=== PATIENT | female | born 1945 | race Caucasian/White ===

== ENCOUNTER 2017-12-29 08:17 | Outpatient (CLI) | payer MEDICARE ==
--- NOTE | 2017-12-29 10:42 | MRI ---
MRI OF THE RIGHT SHOUDLER WITHOUT CONTRAST: INDICATION: History of a fall with right shoulder pain. FINDINGS: There is a full-thickness supraspinatus. There is intratendinous delamination extending from the tea r into the anterior infraspinatus extending to the level of the musculotendinous junction. There is intrasubstance delaminating tear involving the cranial subscapularis best seen on image 15 of series 3 involving the mid 1/3 of the tendon. There is a partial-thickness split tear of the proximal long head of the biceps tendon. There is a type I degenerative tear involving the superior glenoid labrum . There is mild AC joint osteoarthrosis. No muscular atrophy is evident. There is mild glenohumera l osteoarthrosis. IMPRESSION: 1. Large full-thickness tear of the supraspinatus with intratendinous extension into the anterior in fraspinatus extending medially into the musculotendinous junction of the infraspinatus. 2. Partial thickness intratendinous tear involving the cranial subscapularis. 3. Partial-thickness longitudinal split tear involving the long head of the biceps tendon. 4. Degenerative fraying of the superior glenoid labrum. 5. Mild glenohumeral and mild acromioclavicular joint osteoarthrosis. POS: [facility]
== END 2017-12-29 08:18 | disposition home or self-care (01) ==
LOC: TBSIIMAG 08:17
PROVIDERS: ATTEND Orthopaedic Surgery
DX: M25.511 Pain in right shoulder (principal); M75.101 Unspecified rotator cuff tear or rupture of right shoulder, not specified as traumatic; M19.011 Primary osteoarthritis, right shoulder

== ENCOUNTER 2018-02-17 11:18 | Outpatient (CLI) | payer MEDICARE ==
[2018-02-17 13:16] LABS: Bilirubin Negative (Negative); Blood, Urine Negative (Negative); Clarity CLEAR (Clear); Glucose, Urine (Dipstick) Negative (Negative); Leukocyte Negative (Negative); Nitrite Negative (Negative); Protein, Urine (Dipstick) Negative (Neg-Trace); Specific Gravity, Urine 1.006 (1.002-1.036); Urobilinogen 0.2 mg/dL (0.2-1.0)
[2018-02-17 13:18] LABS: Bacteria/HPF None Seen HPF (None Seen); Hyaline Casts/LPF 0-3 HYALINE CAST LPF (0-3 Hyaline); RBC/HPF 0-3 HPF (0-3); Squamous Epithelial None Seen HPF (0-3); WBC/HPF None Seen HPF (0-3)
--- NOTE | 2018-02-17 14:23 | RAD ---
PA AND LATERAL CHEST: History: Pre-operative evaluation. FINDINGS: Comparison made with exam of 11-02-13. The heart size is normal. The aorta is tortuous. The lungs are expanded without focal areas of consol idation, pneumothoraces, or pleural effusions. There are post op changes in the lower cervical spine. Degenerative changes are present in the thoracic spine. IMPRESSION: No radiographic evidence of acute cardiopulmonary process. POS: [facility]
--- NOTE | 2018-02-17 20:28 | EKG ---
Test Reason : Blood Pressure : / mmHG Vent. Rate : 072 BPM Atrial Rate : 072 BPM P-R Int : 156 ms QRS Dur : 098 ms QT Int : 400 ms P-R-T Axes : 048 -13 010 degrees QTc Int : 438 ms Normal sinus rhythm Normal ECG When compared with ECG of 01-MAY-2017 14:17, No significant change was found Confirmed by AURELIO GU (2) on 02/17/2018 8:27:56 PM Referred By: AMY Confirmed By:AURELIO GU
== END 2018-02-17 11:19 | disposition home or self-care (01) ==
LOC: LABBT 11:18
PROVIDERS: ATTEND Orthopaedic Surgery
DX: Z01.818 Encounter for other preprocedural examination (principal); M75.101 Unspecified rotator cuff tear or rupture of right shoulder, not specified as traumatic; M75.21 Bicipital tendinitis, right shoulder
CPT/HCPCS: 71046; 81001; 93005; 93010

== ENCOUNTER 2018-02-22 13:11 | Outpatient (CLI) | payer MEDICARE ==
[2018-02-22 13:31] LABS: Hemoglobin 15.2 g/dL (12.0-16.0); Mean Corpuscular Hemoglobin 32.3 pg (27.0-31.0); Mean Corpuscular Volume 94.8 fl (81.0-99.0); Mean Platelet Volume 6.4 fL (7.4-10.4); Platelet Count 324 thou/uL (130-400); RBC Distribution Width 11.9 % (11.5-14.5); White Blood Cell (WBC) Count 4.4 thou/uL (4.8-10.8)
[2018-02-22 13:39] LABS: INR-International Normal Ratio 0.9; PTT 28.3 SEC (22.9-36.1); Prothrombin Time 12.5 SEC (12.0-14.7)
[2018-02-22 14:01] LABS: Anion Gap 11 mmol/L (10-20); BUN (Urea Nitrogen) 21 mg/dL (9.8-20.1); Calc. Creatinine Clearance 0 mL/min (70-130); Calcium 9.5 mg/dL (7.8-10.44); Carbon Dioxide 28 mmol/L (23-31); Chloride 101 mmol/L (98-107); Estimated GFR-MDRD 72; Glucose 77 mg/dL (83-110); Potassium 4.4 mmol/L (3.5-5.1); Sodium 136 mmol/L (136-145)
== END 2018-02-22 13:12 | disposition home or self-care (01) ==
LOC: LABBT 13:11
PROVIDERS: ATTEND Orthopaedic Surgery
DX: Z01.818 Encounter for other preprocedural examination (principal); M75.101 Unspecified rotator cuff tear or rupture of right shoulder, not specified as traumatic; M75.21 Bicipital tendinitis, right shoulder
CPT/HCPCS: 80048; 85027; 85610; 85730; 86850; 86900; 86901

== ENCOUNTER 2018-02-25 06:43 | Day surgery (SDC) | payer MEDICARE ==
[2018-02-17 11:34] VITALS: BMI 25.2
[2018-02-25] MEDS ORDERED: CEFAZOLIN/Water 2 GM/20 ML SYRINGE ONE (07:33)
[2018-02-25] MEDS ORDERED: Midazolam HCl 2 mg/2 ml Vial ONE (08:08)
[2018-02-25] MEDS ORDERED: Fentanyl 100 MCG/2 ML VIAL ONE (08:08)
[2018-02-25] MEDS ORDERED: Fentanyl 100 MCG/2 ML VIAL IV PRN (08:48)
[2018-02-25] MEDS ORDERED: traMADol HCl 50 MG TAB PO PRN ×2 (08:48)
[2018-02-25] MEDS ORDERED: Promethazine HCl 25 MG/ML VIAL IM PRN (08:48)
[2018-02-25] MEDS ORDERED: Ropivacaine HCl/PF 1,100 MG in Premix Bag 1 BAG NERVE BLCK SCH (08:48)
[2018-02-25] MEDS ORDERED: Ondansetron HCl/PF 4 MG/2 ML Vial IVP PRN (08:48)
[2018-02-25] MEDS ORDERED: HYDROcodone/Acetaminophen 5/325 mg Tablet PO PRN ×2 (08:48)
[2018-02-25] MEDS ORDERED: Zolpidem Tartrate 5 MG TAB PO PRN (08:48)
[2018-02-25] MEDS ORDERED: Bupivacaine/Epinephrine 0.25% 30 ML VIAL ONE (09:13)
--- NOTE | 2018-02-25 11:29 | OP ---
DATE OF PROCEDURE: 02/25/2018 PREOPERATIVE DIAGNOSES: 1. Dislocation shoulder. 2. Complete tear rotator cuff. 3. Biceps tendinosis. POSTOPERATIVE DIAGNOSES: 1. Full thickness rotator cuff tear. 2. Biceps partial tear 50%. 3. Grade III-IV changes glenoid and humerus. 4. Dislocation shoulder. 5. Impingement. PROCEDURE PERFORMED: 1. Right shoulder rotator cuff repair, double row equivalent. 2. Biceps tenotomy/limited debridement. 3. Subacromial decompression. STAFF: Hernesto Perez M.D. RATE CLERK PASSENGER: None ANESTHESIA: The patient received a general intubation interscalene block. ESTIMATED BLOOD LOSS: 40 mL. TOURNIQUET TIME: None. IMPLANTS: A 5.5 BioComposite corkscrew x2 and a 5.5 SwiveLock x2 for transosseous double row equival ent. ANTIBIOTICS: Ancef 2 grams. COMPLICATIONS: None. HISTORY OF PRESENT ILLNESS: Ms. Morales is a pleasant 72-year-old female who presented to me with ri ght shoulder pain. She dislocated her shoulder and was followed by Neurosurgery, who did a fusion fo r some spinal stenosis by Dr. Kelelr. The patient continued to have pain and had an MRI showing a fu ll thickness rotator cuff tear. I discussed with the patient the risks and benefits of arthroscopic rotator cuff repair, possible biceps tenotomy versus tenodesis, decompression and indicated procedure s. The patient understood the risks and benefits of the procedure to include pain, scar, bleeding, i nfection, damage to vital structures, decreased range of motion or strength, failure of the procedure , continued pain despite surgical intervention, loss of life or limb. She understood these risks and benefits and elected to proceed. PROCEDURE NOTE: Timeout was performed designating the patient's right upper extremity as the operati ve site based on site, consents and marking. After completion of timeout the patient's right upper e xtremity was prepped and draped in sterile fashion. Posterior working portal and anterior working po rtal placed. I visualized intraarticular within the joint. I saw a large grade III defect on the gl enoid and humerus with some possible areas of 4. I saw the cuff tear within the joint. The patient had approximately 50% tear of the biceps. I completed the biceps with my scissors to perform a tenot ramirez, shaved and cleaned the bursa and any of the free cartilage flaps. There was flap of cartilage n oted in the subacromial space. We debrided down to bone off the footprint intraarticularly then afte r completion of this, being happy with my debridement final pictures, I moved subacromially, placed a lateral working portal, repositioned my ____ anterior and lateral, debrided off the bursa to expose the cuff, I burred down, shaved down a small acromion to decompress the shoulder and subacromial deco mpression to decompress and burred down the bone. I exposed my footprint for placing my anchors, I p laced two 5.5.corkscrews just off the medial cartilage, passed 8 stitches, 8 limbs through and sewed 4 horizontal mattress sutures through transosseous equivalent 5.5 SwiveLocks laterally. I felt I had good overall alignment compression of the bone. I then completed my procedure, cut the sutures, was hed and closed the 4 holes that I had been made, the fourth hole was to help with placing my anchors from the anterior superior lateral portal just off the acromion. We closed them all. I placed the p atient in an abduction sling. The patient will be elbow, wrist, and hand motion. I will follow up the patient up in 2 weeks, begin elbow, wrist and hand motion. At that time we will begin working on functional range of motion.
[2018-02-25] MEDS ORDERED: Ropivacaine 0.2% HCl/PF (40 MG/20 ML VIAL) ONE (12:51)
[2018-02-25] MEDS ORDERED: Ropivacaine 0.5% HCl/PF (150 MG/30 ML VIAL) ONE (12:51)
[2018-02-25] MEDS ORDERED: Glycopyrrolate 0.2 MG/ML 5 ML SYRINGE ONE (13:06)
[2018-02-25] MEDS ORDERED: PHENYLEPHRINE-NS 100 MCG/ML 10 ML SYRINGE ONE (13:06)
[2018-02-25] MEDS ORDERED: PROPOFOL 200 MG/20 ML VIAL ONE (13:06)
== END 2018-02-25 13:11 | disposition home or self-care (01) ==
LOC: SDC 06:43
PROVIDERS: ATTEND Orthopaedic Surgery
PROC: 0LM14ZZ Reattachment of Right Shoulder Tendon, Percutaneous Endoscopic Approach (ICD-10-PCS; principal; 2018-02-25)
PROC: 0RHJ44Z Insertion of Internal Fixation Device into Right Shoulder Joint, Percutaneous Endoscopic Approach (ICD-10-PCS; 2018-02-25)
PROC: 0RNJ4ZZ Release Right Shoulder Joint, Percutaneous Endoscopic Approach (ICD-10-PCS; 2018-02-25)
DX: S46.011A Strain of muscle(s) and tendon(s) of the rotator cuff of right shoulder, initial encounter (principal); S43.004A Unspecified dislocation of right shoulder joint, initial encounter; S46.111A Strain of muscle, fascia and tendon of long head of biceps, right arm, initial encounter; M75.41 Impingement syndrome of right shoulder; I10 Essential (primary) hypertension; M81.0 Age-related osteoporosis without current pathological fracture; M79.7 Fibromyalgia; M75.21 Bicipital tendinitis, right shoulder; F41.9 Anxiety disorder, unspecified; F32.9 Major depressive disorder, single episode, unspecified; M19.90 Unspecified osteoarthritis, unspecified site; K21.9 Gastro-esophageal reflux disease without esophagitis; E03.9 Hypothyroidism, unspecified; E78.5 Hyperlipidemia, unspecified; G43.909 Migraine, unspecified, not intractable, without status migrainosus; G25.0 Essential tremor; Z79.899 Other long term (current) drug therapy; Z98.1 Arthrodesis status; Z96.651 Presence of right artificial knee joint; W18.41XA Slipping, tripping and stumbling without falling due to stepping on object, initial encounter
CPT/HCPCS: 29826; 29827; C1713 ×2; J2250; J2795; J3010

== ENCOUNTER 2018-05-06 13:41 | Emergency (ER) | payer MEDICARE ==
[2018-05-06] MEDS ORDERED: HYDROcodone/Acetaminophen 5/325 mg Tablet ONE (14:15)
--- NOTE | 2018-05-06 14:56 | CT ---
CT BRAIN: Date: 05-06-18 Provided Clinical History: Trauma. FINDINGS: The ventricular system appears normal in size and morphology. There is no evidence for intracranial h emorrhage or mass effect. The extracranial soft tissues and osseous structures demonstrate an unremar kable CT appearance. IMPRESSION: No evidence for intracranial hemorrhage or mass effect. POS: [facility]
--- NOTE | 2018-05-06 14:58 | CT ---
CT FACIAL BONES: Date: 05-06-18 Provided Clinical History: Facial pain status post injury. FINDINGS: There is a nondisplaced fracture involving the nasal bone left of midline. No additional fracture is evident. The globes and other orbital contents appear normal. IMPRESSION: Nondisplaced fracture involving the left aspect of the nasal bone. POS: [facility]
--- NOTE | 2018-05-06 14:59 | CT ---
CT CERVICAL SPINE: Date: 05-06-18 Provided Clinical History: Trauma. FINDINGS: There is no evidence for fracture or traumatic subluxation. Cervical degenerative and post-operative changes are seen. No prevertebral soft tissue swelling apparent. The visualized lung apices appear cl ear. IMPRESSION: No evidence for fracture or traumatic subluxation. POS: [facility]
== END 2018-05-06 15:07 | disposition home or self-care (01) ==
LOC: SCSER 13:41
DX: S02.2XXA Fracture of nasal bones, initial encounter for closed fracture (principal); Z79.899 Other long term (current) drug therapy; W01.0XXA Fall on same level from slipping, tripping and stumbling without subsequent striking against object, initial encounter
CPT/HCPCS: 70450; 70486; 72125

== ENCOUNTER 2018-07-12 13:36 | Outpatient (CLI) | payer MEDICARE ==
--- NOTE | 2018-07-12 16:56 | BD ---
DEXA BONE MINERAL DENSITOMETRY STUDY: 07/12/2018 HISTORY: Postmenopausal. FINDINGS: The patient had bilateral hip and left wrist surgery and, as a result, a bone mineral densitometry st udy was performed of the lumbar spine and the right wrist. LUMBAR SPINE BMD (g/cm2) T-SCORE Z-SCORE L1 0.921 -0.6 1.4 L2 0.964 -0.6 1.7 L3 1.016 -0.6 1.7 L4 1.213 1.4 3.8 L1-L4 1.044 0 2.2 DISTAL RIGHT FOREARM/WRIST ONE-THIRD 0.532 -2.7 -0.4 MID 0.514 -1.7 0.6 UD 0.373 -1.2 0.5 TOTAL RIGHT FOREARM 0.477 -1.9 0.3 IMPRESSION: 1. Normal bone mineralization of the lumbar spine. 2. Moderate osteopenia of the left wrist. This patient meets the WHO criteria for osteoporosis. POS: [facility]
== END 2018-07-12 13:37 | disposition home or self-care (01) ==
LOC: BICMAMMO 13:36
PROVIDERS: ATTEND Internal Medicine Rheumatology
DX: M81.0 Age-related osteoporosis without current pathological fracture (principal); M85.832 Other specified disorders of bone density and structure, left forearm
CPT/HCPCS: 77080

== ENCOUNTER 2018-08-11 08:57 | Outpatient (CLI) | payer MEDICARE ==
--- NOTE | 2018-08-11 12:32 | MRI ---
LUMBAR SPINE MRI WITHOUT IV CONTRAST: HISTORY: A 72-year-old female with a history of thoracic spine pain and radiculopathy. Chronic upper and lowe r back pain for years. FINDINGS: There are generalized disk desiccation changes and ligament and facet hypertrophic changes. The conu s medullaris region is unremarkable and somewhat low-lying, terminating at the inferior L2 level. Th ere is a left renal T2 hyperintense/T1 hypointense, circumscribed focus, 2.8 cm, statistically a maurilio l cyst. Mild irregular vertical height loss of the T12 vertebral body, less than 50%, without signif icant acute edema, evidence for an old mild compression. No significant retropulsion. L1-L2: Very mild lateral recess narrowing without significant central canal or foraminal stenosis. L2-L3: Slight dorsolateral thinning of the lateral recesses from ligament and facet hypertrophic ladi nges at L2-L3, without central canal or foraminal stenosis, L3-L4: Mild lateral recess stenosis and mild bilateral foraminal stenosis. L4-L5: Moderate central canal and lateral recess stenosis at L4-L5 with moderate bilateral foraminal stenosis. L5-S1: Diffuse disk bulge at L5-S1 with central annular fissure without significant thecal sac compr ession. Moderate to severe bilateral foraminal stenosis. IMPRESSION: Multilevel variable severity canal, lateral recess, and foraminal stenosis. Other findings as above. POS: [facility]
--- NOTE | 2018-08-11 12:36 | RAD ---
LUMBAR SPINE FOUR VIEWS: HISTORY: A 72-year-old female with a history of low back pain, M54.5. Chronic upper and lower back pain for y ears, getting worse. Bilateral leg numbness. TECHNIQUE: Exam includes flexion and extension standing lateral views. FINDINGS: Disk osteophytosis changes are noted with narrowing at L4-L5 and at L5-S1. Mild vertical height loss of T11 and T12, which appears old. No evidence for abnormal translation between flexion and extensi on. IMPRESSION: Extensive spondylosis with narrowing at L4-L5 and at L5-S1, in particular, with some vertical height loss of T11 and T12, without evidence for abnormal translation between flexion and extension. POS: [facility]
--- NOTE | 2018-08-11 12:41 | MRI ---
MRI THORACIC SPINE NONCONTRAST: INDICATIONS: Thoracic spine pain. Thoracic radiculopathy. FINDINGS: There is thoracic kyphosis. Multilevel chronic endplate deformities with associated height loss pres ent, related to endplate degenerative change and Schmorl's node formation. There is no acute marrow edema, acute compression fracture, or significant subluxation. The thoracic spinal cord reveals no i ntrinsic expansile process or definitive evidence for significant cord abnormality. Incidental note of anterior metallic susceptibility of the low cervical spine, related to ACDF, at C6-C7. At the T2-T3 level, there is a broad-based disk osteophyte effacing the ventral aspect of the upper t horacic spinal cord, with mild central canal stenosis. No high grade foraminal compromise. The T3-T4 level reveals disk osteophyte complex with effacement of the ventral thecal sac, although n o significant cord deformity. There is mild narrowing of the right neural foramen. No high grade le ft foraminal stenosis. Otherwise, mild multilevel disk osteophyte formation throughout the thoracic spine with slight efface ment of the ventral thecal sac, although no high grade central canal stenosis or cord deformity. No significant paraspinous soft tissue edema is present. Partially imaged cyst formation is seen at the left kidney. IMPRESSION: 1. Multilevel degenerative change of the thoracic spine. There is a moderate degree of thoracic kyp hosis. 2. Incidental note of anterior cervical diskectomy and fusion change at the low cervical spine. 3. Incidental left renal cyst. Recommend follow-up renal ultrasound, as this finding is incompletel y visualized. POS: [facility]
== END 2018-08-11 08:58 | disposition home or self-care (01) ==
LOC: SCSMRI 08:57
PROVIDERS: ATTEND Surgery
DX: M47.26 Other spondylosis with radiculopathy, lumbar region (principal); M54.5 Low back pain; M54.6 Pain in thoracic spine; G45.0 Vertebro-basilar artery syndrome; M47.817 Spondylosis without myelopathy or radiculopathy, lumbosacral region; M48.07 Spinal stenosis, lumbosacral region; M48.061 Spinal stenosis, lumbar region without neurogenic claudication; M40.204 Unspecified kyphosis, thoracic region; M47.894 Other spondylosis, thoracic region; M99.84 Other biomechanical lesions of sacral region; M99.83 Other biomechanical lesions of lumbar region; M51.9 Unspecified thoracic, thoracolumbar and lumbosacral intervertebral disc disorder
CPT/HCPCS: 72110; 72146; 72148

== ENCOUNTER 2018-12-05 22:22 | Emergency (ER) | payer MEDICARE ==
[2018-12-05] MEDS ORDERED: Lidocaine 1% w/Epinephrine 1:100K 20 ML VIAL ONE (22:43)
[2018-12-05] MEDS ORDERED: Ondansetron PF 4 MG/2 ML Vial ONE (22:55)
[2018-12-05] MEDS ORDERED: Morphine 4 MG/ML VIAL ONE (22:55)
--- NOTE | 2018-12-05 23:24 | RAD ---
LEFT HIP TWO VIEWS: HISTORY: Status post fall. TECHNIQUE: AP and frogleg views of the left hip obtained. FINDINGS: AP and lateral views of the left hip demonstrate a proximal left femoral gamma nail and lag screw in place. The intertrochanteric fracture has healed. No evidence of recurrent fracture is seen. IMPRESSION: Old healed intertrochanteric fracture with no evidence of acute abnormality seen. POS: [facility]
--- NOTE | 2018-12-05 23:26 | RAD ---
LEFT HAND THREE VIEWS: HISTORY: Fall with left thumb pain. TECHNIQUE: AP, lateral, and oblique views of the left hand obtained. FINDINGS: Images demonstrate osteoarthritic changes seen in the first carpometacarpal joint. There is chronic hyperextension deformity at the first metacarpophalangeal joint. No evidence of acute fractures or b darek lesions seen. IMPRESSION: Osteoarthritis, first carpometacarpal joint. POS: [facility]
--- NOTE | 2018-12-05 23:27 | CT ---
CT BRAIN: HISTORY: Fall. Hit head on door, with head trauma. TECHNIQUE: Noncontrast enhanced CT images of the brain obtained. FINDINGS: The brain is unremarkable. No evidence of intracranial masses, hemorrhages, strokes, or contusions s een. The ventricles are of normal size. The calvarium is unremarkable. IMPRESSION: Normal CT brain. POS: [facility]
[2018-12-05] MEDS ORDERED: Bacitracin Zinc 1 Packet ONE (23:31)
--- NOTE | 2018-12-05 23:45 | CT ---
CT CERVICAL SPINE: HISTORY: Fall. Neck pain. TECHNIQUE: Axial images are obtained with coronal and sagittal reconstructions. FINDINGS: The patient has had a previous ACDF with fusion of the C6-C7 levels. The upper aspect of the C6 port ion of the plate is slightly anteriorly displaced, appearing to be somewhat from the anteri or portion of the vertebral body by approximately 2 mm. There are additional areas of spondylosis at C4-C5 and at C5-C6. There is apparent fusion of the left C4-C5 facet joint. No evidence of acute cervical spine fracture is seen. IMPRESSION: Anterior cervical diskectomy and fusion changes with changes of spondylosis. No evidence of acute ce rvical spine fracture is seen. POS: [facility]
[2018-12-06] MEDS ORDERED: Acetaminophen 325 MG TAB ONE (00:10)
== END 2018-12-06 00:19 | disposition home or self-care (01) ==
LOC: SCSER 22:22
DX: S01.81XA Laceration without foreign body of other part of head, initial encounter (principal); S70.02XA Contusion of left hip, initial encounter; M54.2 Cervicalgia; F41.9 Anxiety disorder, unspecified; K21.9 Gastro-esophageal reflux disease without esophagitis; F32.9 Major depressive disorder, single episode, unspecified; E78.00 Pure hypercholesterolemia, unspecified; M19.90 Unspecified osteoarthritis, unspecified site; I10 Essential (primary) hypertension; Z79.899 Other long term (current) drug therapy; Z79.891 Long term (current) use of opiate analgesic; W19.XXXA Unspecified fall, initial encounter
CPT/HCPCS: 12011; 70450; 72125; 96361; 96374; 96375; J2001; J2270; J2405

== ENCOUNTER 2019-07-06 10:26 | Outpatient (CLI) | payer MEDICARE ==
[~2019-07-06 10:26] MED LIST: Iopamidol 370 76% 100 ML VIAL ONE
--- NOTE | 2019-07-06 15:11 | CT ---
CT NECK WITH CONTRAST: Date: 07/06/19 Axial tomograms obtained with multiplanar reconstruction. INDICATION: Palpable mass right neck below ear. Skin marker placed at site of concern. FINDINGS: The right parotid gland is slightly larger than the left and exhibits increased density. The left par otid gland shows fatty replacement/atrophy. The marker at the neck is along the inferior tip of the r ight parotid gland. No parotid mass or adenopathy seen. Submandibular glands are normal and symmetric. Thyroid is unremarkable. Nasopharynx unremarkable. Oropharynx unremarkable. Base of tongue is obscured due to spray artifact from dental appliance. Johanna ohyoid and mylohyoid complex is unremarkable. The right vallecula is mildly effaced in the hypopharynx region. Hypopharynx otherwise unremarkable. Piriform sinuses are slightly asymmetric, but are aerated. Larynx unremarkable. Parapharyngeal space and retropharyngeal space unremarkable. Cervical lymph nodes are within normal range with no evidence of adenopathy. Paranasal sinuses and mastoids are clear. Postop changes with anterior fusion from plate and screws at C6-7. Posterior spondylosis at C5-6 and C6-7 appears prominent and appears to impinge on the cervical cord. Carotid space shows atherosclerotic calcifications in both bulbs without evidence of significant mcknight tid stenosis. IMPRESSION: Parotid glands are asymmetric. The right parotid gland appears edematous when compared to the left an d does correspond to the area of palpable abnormality on the right. Parotitis should be excluded. Con mortgage specialist ENT consultation. POS: [facility]
== END 2019-07-06 10:27 | disposition home or self-care (01) ==
LOC: SCSCT 10:26
PROVIDERS: ATTEND Internal Medicine
DX: R22.1 Localized swelling, mass and lump, neck (principal)
CPT/HCPCS: 70491; Q9967

== ENCOUNTER 2020-02-09 13:23 | Outpatient (CLI) | payer MEDICARE ==
--- NOTE | 2020-02-09 15:34 | RAD ---
LUMBAR SPINE: 02/09/20 Four views. HISTORY: Back pain. Lumbar vertebrae maintain height and alignment. There are wedge deformities involving the lower thora cic vertebrae with prominent degenerative spurring. There is disc space loss at L4-5 and L5-S1. Promi nent facet hypertrophy at these levels. Alignment is maintained with no evidence of listhesis. No sig nificant change with flexion or extension. IMPRESSION: Degenerative changes in the lumbar spine most pronounced at L4-5 and L5-S1. Findings appear stable when compared to lumbar films of 08/11/18. POS: [facility]
--- NOTE | 2020-02-09 16:01 | RAD ---
CERVICAL SPINE: HISTORY: History of cervical radiculopathy. Arm pain. FINDINGS: Cervical vertebrae maintain height. There are anterior fusion procedure changes with anterior plate and screws transfixing C6-7. Interbody implant with fusion at this level. Disk narrowing and degene rative changes at C5-6 with mild posterior listhesis at C5-6. The other vertebral bodies maintain no rmal height and alignment. The posterior listhesis at C5-6 appears to reduce with flexion. IMPRESSION: Postoperative and degenerative changes of the cervical spine as described. POS: [facility]
--- NOTE | 2020-02-09 16:24 | MRI ---
MRI LUMBAR SPINE NONCONTRAST: DATE: 02/09/2020 HISTORY: 74-year-old female with low back pain COMPARISON: 08/11/2018 FINDINGS: r approximately 3 cm left renal cyst again visualized. 5 lumbar-type vertebrae. Mild loss of height of T12 vertebral body, chronic, with mild depression of superior endplate associated with prominent Schmorl's node. No bone marrow edema. The rest of the vertebral body heights are maintained. 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 T12-L1:Mild disc bulge. No central stenosis or high-grade neural foraminal stenosis. L1-2:Mild disc bulge. Minimal retrolisthesis of L1 on L2. No significant central stenosis or high-gra de grade left neural foraminal stenosis. Mild to moderate right neural foraminal stenosis. L2-3:Conus medullaris terminates at this level, at the lowest limit of normal. No central stenosis. A t least mild bilateral facet DJD. Disc space preserved. Minimal disc bulge. Minimal retrolisthesis of L2 on L3. No high-grade neural foraminal stenosis. L3-4:Disc space maintained. Minimal disc bulge. Moderate bilateral facet DJD. Moderate ligamentum fla vum thickening. No high-grade central stenosis. Bilateral mild to moderate neural foraminal stenosis. L4-5:Moderate to severe right facet DJD. Moderate left facet DJD. Moderate right neural foraminal jimmy nosis. Mild to moderate left neural foraminal stenosis. Moderate to severe disc space narrowing. Prominent diffuse disc bulge. Lateral recess stenosis bilaterally, right worse than left. Mild to mod erate central spinal canal stenosis. Minimal anterolisthesis L4 on L5 by 2 mm. L5-S1:Moderate to severe right facet DJD. Mild left facet DJD. No central stenosis. Mild right latera l recess stenosis. Moderate right neural foraminal stenosis. Mild to moderate left neural foraminal stenosis. No central stenosis. Moderate to severe disc space narrowing. Diffuse disc bulge. Posterior midline annular fissure associated with central and bilateral paracentral shallow disc protrusion. No interval change overall. IMPRESSION: 1) lumbar spondylosis with high-grade degenerative disc disease and high-grade facet osteoarthrosis a t L4-5 and L5-S1. 2) conus medullaris terminates at the lowest limits of normal, L2-3. 3) neural foraminal stenosis, including moderate, at several levels. 4) mild chronic loss of height of T12 5) no significant interval change.
--- NOTE | 2020-02-09 16:42 | MRI ---
MRI CERVICAL SPINE WITH AND WITHOUT CONTRAST: 02/09/20 INDICATIONS: Neck pain. Cervical radiculopathy. Bilateral arm pain. Correlation made to CT cervical spine 12/05/18. Cervical vertebrae maintain height and alignment. There are degenerative and postoperative changes no sindy. Anterior fusion procedure at C6-7 is again noted. Anterior plate and screw transfix this level a nd produce artifact. Interbody implant and partial fusion at this level is noted on prior CT. At C2-3, no significant disc bulge or protrusion. No central canal or foraminal stenosis. At C3-4, minimal posterior disc bulge and spondylosis. Anterior subarachnoid space is preserved. No c entral canal or foraminal stenosis. At C4-5, mild disc bulge and spondylosis effaces the anterior subarachnoid space. No cord impingement . Slight anterolisthesis at this level is stable from the prior exam. No significant foraminal stenos is apparent. At C5-6, posterior disc bulge and spondylosis abut the anterior cord. This has a similar appearance t o the prior CT. Bilateral foraminal stenosis at this level. At C6-7, prominent posterior spondylosis impinge on the anterior cord in its midline. This is better appreciated on the CT from 12/05/18. Mild bilateral foraminal stenosis due to hypertrophic change. Cord signal appears normally preserved. IMPRESSION: Postop changes at C6-7. Spondylosis at C5-6 and C6-7 impinge on the cord and produce foraminal stenos is. Findings are similar to the CT of 12/05/18. POS: [facility]
== END 2020-02-09 13:24 | disposition home or self-care (01) ==
LOC: TBSIIMAG 13:23
PROVIDERS: ATTEND Surgery
DX: M47.12 Other spondylosis with myelopathy, cervical region (principal); M54.5 Low back pain; M47.816 Spondylosis without myelopathy or radiculopathy, lumbar region; M47.817 Spondylosis without myelopathy or radiculopathy, lumbosacral region; M48.02 Spinal stenosis, cervical region; M51.36 Other intervertebral disc degeneration, lumbar region; M48.061 Spinal stenosis, lumbar region without neurogenic claudication; M48.07 Spinal stenosis, lumbosacral region; Z98.1 Arthrodesis status
CPT/HCPCS: 72050; 72110; 72148; 72156; 82565

== ENCOUNTER 2020-03-20 07:02 | Outpatient (CLI) | payer MEDICARE, OTHER ==
[2020-03-20 11:26] LABS: INR-International Normal Ratio 0.9; PTT 28.7 sec (22.9-36.1); Prothrombin Time 12.2 sec (12.0-14.7)
[2020-03-20 11:50] LABS: Hemoglobin 15.3 g/dL (12.0-16.0); Mean Corpuscular HGB CONC 33.2 g/dL (32.0-36.0); Mean Corpuscular Volume 99.2 fL (78.0-98.0); Mean Platelet Volume 7.5 fL (7.4-10.4); Platelet Count 291 thou/uL (130-400); RBC Distribution Width 11.8 % (11.5-14.5); Red Blood Cell (RBC) Count 4.64 mill/uL (4.20-5.40); White Blood Cell (WBC) Count 4.4 thou/uL (4.8-10.8)
[2020-03-20 13:00] LABS: Anion Gap 13 mmol/L (10-20); BUN (Urea Nitrogen) 13 mg/dL (9.8-20.1); Calc. Creatinine Clearance 0 mL/min (70-130); Calcium 9.5 mg/dL (7.8-10.44); Carbon Dioxide 28 mmol/L (23-31); Chloride 101 mmol/L (98-107); Estimated GFR-MDRD 77; Glucose 69 mg/dL (83-110); Potassium 4.3 mmol/L (3.5-5.1); Sodium 138 mmol/L (136-145)
[2020-03-21 12:44] LABS: SARS-CoV-2 MS2 Positive; SARS-CoV-2 N Gene Negative; SARS-CoV-2 S Gene Negative; SARS-CoV-2 orf1ab Negative
== END 2020-03-20 07:03 | disposition home or self-care (01) ==
LOC: LABBT 07:02
PROVIDERS: ATTEND Surgery
DX: Z01.818 Encounter for other preprocedural examination (principal); Z11.59 Encounter for screening for other viral diseases; M54.16 Radiculopathy, lumbar region; M48.061 Spinal stenosis, lumbar region without neurogenic claudication
CPT/HCPCS: 80048; 85027; 85610; 85730; U0003; 87635; 93005; 93010

== ENCOUNTER 2020-03-22 08:13 | Day surgery (SDC) | payer MEDICARE ==
[2020-03-19 11:13] VITALS: BMI 24.6
[2020-03-22] MEDS ORDERED: Sodium Chloride 0.9% 10 ML ONE (08:51)
[2020-03-22] MEDS ORDERED: Thrombin 5000 UNITS/5 ML VIAL ONE (08:51)
[2020-03-22] MEDS ORDERED: Fentanyl 100 MCG/2 ML VIAL ONE ×3 (09:05→12:46)
[2020-03-22] MEDS ORDERED: tiZANidine HCl 4 MG TAB PO PRN (12:20)
[2020-03-22] MEDS ORDERED: Bisacodyl 10 MG SUPP PR PRN (12:20)
[2020-03-22] MEDS ORDERED: Fleet Enema 133 ML BOT PR PRN (12:20)
[2020-03-22] MEDS ORDERED: Milk Of Magnesia 30 ML UDCUP PO PRN (12:20)
[2020-03-22] MEDS ORDERED: Mag-Al 1200 mg/1200 mg/30 ML UDCUP PO PRN (12:20)
[2020-03-22] MEDS ORDERED: Morphine 2 MG/ML SYRINGE SLOW IVP PRN (12:20)
[2020-03-22] MEDS ORDERED: Ondansetron PF 4 MG/2 ML Vial IVP PRN (12:20)
[2020-03-22] MEDS ORDERED: Acetaminophen 325 MG TAB PO PRN (12:20)
[2020-03-22] MEDS ORDERED: clonazePAM 1 MG TAB PO PRN (12:22)
[2020-03-22] MEDS ORDERED: traMADol HCl 50 MG TAB PO PRN (12:24)
[2020-03-22] MEDS ORDERED: Promethazine HCl 25 MG/ML VIAL IM PRN (12:28)
[2020-03-22] MEDS ORDERED: Ondansetron HCl/PF 4 MG/2 ML Vial IVP PRN (12:28)
[2020-03-22] MEDS ORDERED: Promethazine HCl 25 MG/ML VIAL SLOW IVP PRN (12:28)
[2020-03-22] MEDS ORDERED: RISEDRONATE SODIUM 35 MG PO SCH (12:30)
[2020-03-22] MEDS: Sodium Chloride 0.9% 1,000 ML IV SCH ×2 (14:17→23:18)
[2020-03-22] MEDS: HYDROcodone/Acetaminophen 7.5/325 mg Tablet PO PRN ×3 (14:38→23:17)
[2020-03-22] MEDS ORDERED: PROPOFOL 200 MG/20 ML VIAL ONE (15:22)
[2020-03-22] MEDS ORDERED: PHENYLEPHRINE-NS 100 MCG/ML 10 ML SYRINGE ONE (15:22)
[2020-03-22] MEDS ORDERED: Dexamethasone 20 MG/5 ML VIAL ONE (15:22)
[2020-03-22] MEDS ORDERED: Ondansetron PF 4 MG/2 ML Vial ONE (15:22)
[2020-03-22] MEDS ORDERED: Lidocaine 1% PF 5 ML VIAL ONE (15:22)
[2020-03-22] MEDS ORDERED: Rocuronium Bromide 10 MG/ML (10ML VIAL) ONE (15:22)
[2020-03-22] MEDS ORDERED: Glycopyrrolate 0.2 MG/ML 5 ML SYRINGE ONE (15:22)
[2020-03-22] MEDS ORDERED: EPHEDRINE 25 MG/5 ML SYRINGE ONE (15:22)
[2020-03-22] MEDS: CEFAZOLIN 2 GM in Premix Bag 1 BAG IVPB SCH ×2 (17:16→23:18)
[2020-03-22] MEDS: Metamucil PACK PO SCH (20:50)
[2020-03-22] MEDS ORDERED: clonazePAM 1 MG TAB PO SCH (21:00)
[2020-03-22] MEDS ORDERED: Primidone 50 MG TAB PO SCH (21:00)
[2020-03-22] MEDS ORDERED: Non-Formulary Item 1 EACH (Lifitegrast [Xiidra] 1 EACH) OP SCH (21:00)
[2020-03-22] MEDS ORDERED: Rosuvastatin 10 MG TAB PO SCH (21:00)
[2020-03-22] MEDS: Acetaminophen/Codeine 30-300mg Tablet PO PRN (21:22)
[2020-03-23] MEDS: Acetaminophen/Codeine 30-300mg Tablet PO PRN (00:36)
[2020-03-23] MEDS: HYDROcodone/Acetaminophen 7.5/325 mg Tablet PO PRN (02:54)
--- NOTE | 2020-03-23 05:19 | OP ---
DATE OF PROCEDURE: 03/22/2020 CVT RN: Monisha Scott PA-C PREPROCEDURE DIAGNOSES: Low back and right greater than left lower extremity pain with lumbar stenosis and lumbar radiculopathy. POSTPROCEDURE DIAGNOSES: Low back and right greater than left lower extremity pain with lumbar stenosis and lumbar radiculopathy. PROCEDURES PERFORMED: 1. L4-L5 laminectomy, partial facetectomy and foraminotomy. 2. Right L5-S1 hemilaminotomy and foraminotomy. DESCRIPTION OF PROCEDURE: After informed consent was obtained from the patient, the patient was brought to the OR. Proper patient, pause, and identification were carried out. She was placed under excellent general endotracheal anesthesia and positioned prone on the OR table. All appropriate points were identified. We identified L4, L5 and S1 dorsal spines and lamina. This region was sterilely cleansed, prepared, and draped. Proper patient, pause, and identification were carried out. The wound was then opened with a combination of sharp, monopolar, and blunt dissection. The L4, L5, and S1 dorsal spines and lamina, in particularly the right L5-S1 nneka-lamina, were also exposed. Localization film confirmed our area of interest. We then performed L4-L5 laminectomy and a right L5-S1 hemilaminotomy and foraminotomy with excellent decompression of the common dural tube, bilateral L5 nerve roots and the right S1 nerve root. Copious irrigation occurred throughout as did maximizing hemostasis. The wound was then closed in anatomic layers following sprinkling of vancomycin powder. The patient emerged from anesthesia. Job ID: [id number]
[2020-03-23] MEDS ORDERED: Levothyroxine Sodium 112 MCG TAB PO SCH (06:00)
[2020-03-23] MEDS ORDERED: Levothyroxine Sodium 25 MCG TAB PO SCH (06:00)
[2020-03-23] MEDS: Metamucil PACK PO SCH (08:30)
[2020-03-23] MEDS ORDERED: Senokot S 8.6-50 MG TAB PO SCH (09:00)
[2020-03-23] MEDS ORDERED: Bupropion 150 MG XL TAB PO SCH (09:00)
[2020-03-23] MEDS ORDERED: Vit A,C & E/Lutein/Minerals Tablet PO SCH (09:00)
[2020-03-23] MEDS ORDERED: Cyanocobalamin (Vitamin B-12) 1,000 MCG TAB PO SCH (09:00)
[2020-03-23] MEDS ORDERED: Lisinopril 20 MG TAB PO SCH (09:00)
[2020-03-23] MEDS ORDERED: Furosemide 40 MG TAB PO SCH (09:00)
[2020-03-23] MEDS ORDERED: Venlafaxine HCl XR 150 MG CAP PO SCH (09:00)
[2020-03-23] MEDS ORDERED: Loratadine 10 MG TAB PO SCH (09:00)
[2020-03-23] MEDS ORDERED: Fluticasone Propionate Nasal Spray 16 gm Bottle NASAL SCH (09:00)
[2020-03-23 12:05] VITALS: BP 95/46; TEMP 98.3
--- NOTE | 2020-03-23 12:39 | PRG ---
DATE OF SERVICE: 03/23/2020 Ms. Morales is doing well postoperative day 1. She is in the bathroom as we are speaking. I will plan for dismissal. Job ID: [id number]
== END 2020-03-23 14:17 | disposition home or self-care (01) ==
LOC: SDC 08:13 → SURG A 12:20 → SDC 03-23 14:17
PROVIDERS: ATTEND Surgery
PROC: 01NB0ZZ Release Lumbar Nerve, Open Approach (ICD-10-PCS; principal; 2020-03-22)
DX: M48.061 Spinal stenosis, lumbar region without neurogenic claudication (principal); M54.16 Radiculopathy, lumbar region; I10 Essential (primary) hypertension; E78.5 Hyperlipidemia, unspecified; E03.9 Hypothyroidism, unspecified; K21.9 Gastro-esophageal reflux disease without esophagitis; M81.0 Age-related osteoporosis without current pathological fracture; M79.7 Fibromyalgia; M19.90 Unspecified osteoarthritis, unspecified site; G43.909 Migraine, unspecified, not intractable, without status migrainosus; G25.0 Essential tremor; Z79.899 Other long term (current) drug therapy
CPT/HCPCS: 76000; J0690; J1100; J2001; J2270; J2405; J2704; J3010; J3370; J3490

== ENCOUNTER 2020-07-30 13:25 | Outpatient (CLI) | payer MEDICARE ==
--- NOTE | 2020-07-30 14:05 | BD ---
EXAM: DEXA bone density examination HISTORY: 74-year-old postmenopausal female for screening COMPARISON: None FINDINGS: L1--bone mineral density 0.884 g/sq cm; T score -1.0 L2--bone mineral density 0.957 g/sq cm; T score -0.6 L3--bone mineral density 1.074 g/sq cm; T score -0.1 L4--bone mineral density 1.147 g/sq cm; T score 0.8 Total L1-L4--bone mineral density 1.036 g/sq cm; T score -0.1 Right distal third forearm--bone mineral density0.540; T score -2.6 Total distal right forearm--bone mineral density 0.447; T score -2.4 IMPRESSION: Osteoporosis. These findings are based off the forearm. The spine may be more accurate fo r bone density which gives the patient normal bone mineral density.
== END 2020-07-30 13:26 | disposition home or self-care (01) ==
LOC: BICMAMMO 13:25
PROVIDERS: ATTEND Internal Medicine Rheumatology
DX: M81.0 Age-related osteoporosis without current pathological fracture (principal); M85.88 Other specified disorders of bone density and structure, other site
CPT/HCPCS: 77080

== ENCOUNTER 2021-01-24 13:26 | Outpatient (CLI) | payer MEDICARE | END 2021-01-24 13:27 | disposition home or self-care (01) | LOC: ULT 13:26 | PROVIDERS: ATTEND Internal Medicine | DX: M79.604 Pain in right leg (principal); M79.89 Other specified soft tissue disorders; R09.89 Other specified symptoms and signs involving the circulatory and respiratory systems | CPT/HCPCS: 93922 ==

== ENCOUNTER 2021-02-26 13:32 | Outpatient (CLI) | payer MEDICARE ==
[2021-02-26 14:51] LABS: #Basophils 0.1 10x3/uL (0.0-0.2); #Eosinphils 0.2 10x3/uL (0.0-0.5); #Monocytes 0.9 10x3/uL (0.0-1.1); #Neutrophils 6.8 10x3/uL (1.5-8.4); %Basophils 0.6 % (0.0-2.0); %Eosinophils 2.4 % (0.0-6.0); %Lymphocytes 8.6 % (18.0-47.0); %Monocytes 10.6 % (0.0-10.0); %Neutrophils 76.8 % (40.0-75.0); Hemoglobin 13.1 g/dL (12.0-15.5); Mean Corpuscular Hemoglobin 31.1 pg (27.0-33.0); Mean Corpuscular Volume 94.3 fl (81.6-98.3); Mean Platelet Volume 9.3 fl (7.4-10.4); Platelet Count 361 10x3/uL (150-450); RBC Distribution Width 13.4 % (11.5-14.5); Red Blood Cell (RBC) Count 4.21 10x6/uL (3.90-5.03); White Blood Cell (WBC) Count 8.8 10x3/uL (3.5-10.5)
[2021-02-26 14:58] LABS: Prothrombin Time 10.7 sec (9.5-12.1)
[2021-02-26 15:00] LABS: Anion Gap 14 mmol/L (10-20); BUN (Urea Nitrogen) 15 mg/dL (9.8-20.1); Calc. Creatinine Clearance 0 mL/min (70-130); Calcium 9.3 mg/dL (7.8-10.44); Carbon Dioxide 23 mmol/L (23-31); Chloride 103 mmol/L (98-107); Glucose 86 mg/dL (83-110); Potassium 4.4 mmol/L (3.5-5.1); Sodium 136 mmol/L (136-145)
[2021-02-27 00:31] LABS: SARS-CoV-2 PCR by NAA DETECTED (NotDetected)
== END 2021-02-26 13:33 | disposition home or self-care (01) ==
LOC: LABBT 13:32
PROVIDERS: ATTEND Orthopaedic Surgery
DX: U07.1 COVID-19 (principal); Z01.818 Encounter for other preprocedural examination; S82.002A Unspecified fracture of left patella, initial encounter for closed fracture
CPT/HCPCS: 80048; 85025; 85610; U0003; U0005; 87635

== ENCOUNTER 2021-02-28 07:26 | Day surgery (SDC) | payer OTHER, MEDICARE ==
[2021-02-27 14:46] VITALS: BMI 25.7
[2021-02-28] MEDS ORDERED: Fentanyl 100 MCG/2 ML VIAL ONE ×3 (08:23→11:48)
[2021-02-28] MEDS ORDERED: Midazolam HCl 2 mg/2 ml Vial ONE (08:23)
[2021-02-28] MEDS ORDERED: PHENYLEPHRINE-NS 100 MCG/ML 10 ML SYRINGE ONE (09:15)
[2021-02-28] MEDS ORDERED: Ketorolac Tromethamine 30 MG/ML VIAL ONE (09:15)
[2021-02-28] MEDS ORDERED: ePHEDrine Sulfate 50 MG/10 ML VIAL ONE (09:15)
[2021-02-28] MEDS ORDERED: Bupivacaine HCl 0.5%/Epinephrine 1:200,000/PF 30 ml Vial ONE (09:15)
[2021-02-28] MEDS ORDERED: Dexamethasone 20 MG/5 ML VIAL ONE (09:15)
[2021-02-28] MEDS ORDERED: Ondansetron PF 4 MG/2 ML Vial ONE (09:15)
[2021-02-28] MEDS ORDERED: Lidocaine 1% PF 5 ML VIAL ONE (09:15)
[2021-02-28] MEDS ORDERED: PROPOFOL 200 MG/20 ML VIAL ONE (09:15)
[2021-02-28] MEDS ORDERED: HYDROcodone/Acetaminophen 5/325 mg Tablet ONE (13:36)
== END 2021-02-28 14:15 | disposition home or self-care (01) ==
LOC: SDC 07:26
PROVIDERS: ATTEND Orthopaedic Surgery
PROC: 0QSF04Z Reposition Left Patella with Internal Fixation Device, Open Approach (ICD-10-PCS; principal; 2021-02-28)
PROC: 3E0T3BZ Introduction of Anesthetic Agent into Peripheral Nerves and Plexi, Percutaneous Approach (ICD-10-PCS; 2021-02-28)
DX: S82.032A Displaced transverse fracture of left patella, initial encounter for closed fracture (principal); G89.18 Other acute postprocedural pain; I10 Essential (primary) hypertension; E78.5 Hyperlipidemia, unspecified; E03.9 Hypothyroidism, unspecified; K21.9 Gastro-esophageal reflux disease without esophagitis; G25.0 Essential tremor; M81.0 Age-related osteoporosis without current pathological fracture; M79.7 Fibromyalgia; M19.90 Unspecified osteoarthritis, unspecified site; G43.909 Migraine, unspecified, not intractable, without status migrainosus; Z79.899 Other long term (current) drug therapy; W01.0XXA Fall on same level from slipping, tripping and stumbling without subsequent striking against object, initial encounter
CPT/HCPCS: 76000; J0690; J1100; J1885; J2250; J2405; J2704; J3010

== ENCOUNTER 2021-11-19 13:50 | Outpatient (CLI) | payer MEDICARE | END 2021-11-19 13:51 | disposition home or self-care (01) | LOC: BICMAMMO 13:50 | PROVIDERS: ATTEND Internal Medicine | DX: Z12.31 Encounter for screening mammogram for malignant neoplasm of breast (principal); Z80.8 Family history of malignant neoplasm of other organs or systems | CPT/HCPCS: 77063; 77067 ==

== ENCOUNTER 2022-07-24 12:58 | Outpatient (CLI) | payer MEDICARE | END 2022-07-24 12:59 | disposition home or self-care (01) | LOC: DTY/OP 12:58 | PROVIDERS: ATTEND Internal Medicine | DX: E66.3 Overweight (principal) | CPT/HCPCS: 97802 ==

== ENCOUNTER 2023-05-27 14:53 | Outpatient (CLI) | payer MEDICARE | END 2023-05-27 14:54 | disposition home or self-care (01) | LOC: BICMAMMO 14:53 | PROVIDERS: ATTEND Internal Medicine Rheumatology | DX: M81.0 Age-related osteoporosis without current pathological fracture (principal) | CPT/HCPCS: 77080 ==

== ENCOUNTER 2023-11-12 12:32 | Outpatient (CLI) | payer MEDICARE | END 2023-11-12 12:33 | disposition home or self-care (01) | LOC: BICRAD 12:32 | PROVIDERS: ATTEND Nurse Practitioner Family | DX: R09.89 Other specified symptoms and signs involving the circulatory and respiratory systems (principal) | CPT/HCPCS: 71046; 87635 ==

== ENCOUNTER 2023-12-30 12:14 | Outpatient (CLI) | payer MEDICARE | END 2023-12-30 12:15 | disposition home or self-care (01) | LOC: BICMAMMO 12:14 | PROVIDERS: ATTEND Internal Medicine | DX: Z12.31 Encounter for screening mammogram for malignant neoplasm of breast (principal); J90 Pleural effusion, not elsewhere classified; Z85.89 Personal history of malignant neoplasm of other organs and systems | CPT/HCPCS: 71046; 77063; 77067 ==